=== PATIENT | male | born 1985 | race African-American/Black ===

== ENCOUNTER 2019-12-08 19:55 | Emergency (ER) | payer OTHER ==
[~2019-12-08] VITALS: Ht 177.8 cm; Wt 86.2 kg
[2019-12-08 23:38] VITALS: BP 135/88
== END 2019-12-08 23:39 | disposition home or self-care (01) ==
LOC: M.ERS 19:55
DX: I83.92 Asymptomatic varicose veins of left lower extremity (principal)